=== PATIENT | female | born 1960 | race Caucasian/White ===

== ENCOUNTER 2016-07-26 08:30 | Emergency (ER) | payer OTHER ==
[~2016-07-26] VITALS: Ht 162.6 cm; Wt 77.3 kg
[2016-07-26 08:35] VITALS: BP 140/86; PULSE 91; RESP 18; O2SAT 98
--- NOTE | 2016-07-26 09:08 | ED.REPORT ---
HPI-Dizziness / Weakness Date of Service July 26, 2016 ED Provider: Jesus Bright DO 56 year old female presents to the ER complaining of lightheadedness onset suddenly after eating some toast and hummus for breakfast. Patient became unsteady on her feet, and nauseated due to the severity of symptoms and promptly sat down. Associated symptoms include palpitations, diaphoresis, and a single episode of vomiting. Currently she primarily complains of persistent lightheadedness. She denies any chest pain, arm pain, numbness/weakness, and any other neurological symptoms. Nursing Notes Stated Complaint: NAUSEA/DIZZY Chief Complaint: General Complaint Nursing Notes Reviewed: Yes Allergies: Coded Allergies: No Known Allergies (Unverified , 07/26/16) General Time Seen by MD: 09:07 Chief Complaint Lightheaded Hx Obtained From: Patient Arrived By: Walk-in Onset Occurred: Just prior to arrival Symptom Duration: Since onset Location: : No pain Associated with: Reports: Nausea, Vomiting Pertinent Negative: Pt denies other symptoms Similar Sx Previous: No Past Medical History Past Medical History Reports: Asthma Past Surgical History Sinus surgery Knee surgery Reports: Cholecystectomy Smoking History Never Smoker Social History Alcohol Use: Denies alcohol use Ambulatory Status Independent Review of Systems GI: Reports: Nausea, Vomiting, Denies: Diarrhea Skin: Reports Diaphoresis Neurologic: Reports: Dizziness, Lightheaded, Denies: Focal weakness (/), Numbness, Slurred speech, Syncope, Weakness Complete sys rev & neg: except as marked. Physical Exam Initial Vital Signs Vital Signs (First) Date Time Temp Pulse Resp B/P Pulse Ox O2 Delivery O2 Flow Rate FiO2 07/26/16 08:35 35.8 91 18 140/86 98 07/26/16 10:25 Room Air Initial VS: Reviewed Neck: Supple, Non-tender, Full range of motion Abdomen / GI: Soft, Non-tender, No guarding, No rebound, No distention Extremities: Vascular intact, Neuro intact, No swelling, No tenderness Skin: Warm, Dry, No cyanosis Psychiatric: Mood/affect normal, Behavior normal, Normal thought content General/Constitutional: Awake, Alert, Well developed, Well nourished Head / Eyes: Normocephalic, PERRL, No nystagmus, Conjunctiva NL Respiratory / Chest: Breath sounds NL, Breath sounds = bilat, No respiratory distress, No rales, No rhonchi, No wheezing Cardiovascular: Heart rate NL, Regular rhythm, Heart sounds NL, No murmurs, Cap refill not delayed, Peripheral circulation NL Neurologic: Oriented X3, Speech NL, No motor deficits, No sensory deficits, CN II - XII intact Describes lightheadedness, NOT vertigo or ataxia. Interpretation & Diagnostics Lab Results Interpretation Result Diagram: 07/26/16 1046 07/26/16 1046 Test 07/26/16 10:46 07/26/16 11:20 White Blood Count 9.9th/mm3 (3.8-10.1) Red Blood Count 4.62mil/mm3 (3.90-5.20) Hemoglobin 12.8g/dL (12.0-15.6) Hematocrit 39.2% (35.0-46.0) Mean Corpuscular Volume 84.8fL (81-100) Mean Corpuscular Hemoglobin 27.7pg (27.0-35.0) Mean Corpuscular Hemoglobin Concent 32.7% (32.0-37.0) Red Cell Distribution Width 16.0% (12.3-15.4) Platelet Count 235bil/L (150-400) Neutrophils (%) (Auto) 76.5% (40-74) Lymphocytes (%) (Auto) 9.5% (14-46) Monocytes (%) (Auto) 8.1% (4-12) Eosinophils (%) (Auto) 5.0% (0-5) Basophils (%) (Auto) 0.6% (0-3) D-Dimer < 0.50mg/L FEU (<0.50) Sodium Level 143mEq/L (134-144) Potassium Level 3.8mEq/L (3.5-5.2) Chloride Level 107mEq/L (97-108) Carbon Dioxide Level 21mmol/L (18-29) Blood Urea Nitrogen 21mg/dL (6-24) Creatinine 0.71mg/dL (0.57-1.00) Estimat Glomerular Filtration Rate 121mL/min (>59) Glucose Level 100mg/dL (60-99) Calcium Level 9.3mg/dL (8.5-10.1) Magnesium Level 2.0mg/dL (1.6-2.6) Total Bilirubin 0.3mg/dL (0.0-1.2) Aspartate Amino Transf (AST/SGOT) 53U/L (0-50) Alanine Aminotransferase (ALT/SGPT) 58U/L (0-32) Alkaline Phosphatase 87U/L (25-150) Total Creatine Kinase 111U/L (21-215) Creatine Kinase MB 2.1ng/mL (0.0-5.3) Creatine Kinase MB % % (0.0-5.0) Troponin T 0.010ug/L (0.0-0.011) Pro-B-Type Natriuretic Peptide 38.45pg/mL (0-287) Total Protein 7.4g/dL (6.4-8.4) Albumin 3.9g/dL (3.4-5.0) Theophylline Level 16.0ug/mL Rx (10.0-20.0) Hold Urine Received (Received) ECG Interpretation Time: 09:52 Interpreted by: ED physician Normal ECG Interpretation: Normal rate (80), Normal sinus rhythm, No acute ischemic changes, Normal QRS, Normal axis, Normal intervals, No change from prior ECGs, Adequate tracing X-Ray Chest Interpretation Chest Xray Interpretation: IMPRESSION: No acute cardiopulmonary disease process. Dictated by: Bibiana Ignacio MD, PhD on 07/26/2016 at 10:09 Approved by: Bibiana Ignacio MD, PhD on 07/26/2016 at 10:11 View: Portable, 1 view Interpretation / Wet Read by: Interpret - Radiologist Re-Eval/Medical Decision Med Decision/Clinical Course Heart score is 2. Patient presents with a sense of nausea and almost passing out after eating some food this morning. Her symptoms have resolved. Overall it did not sound consistent with a cerebellar stroke or other neurologic process. Her labs are unremarkable for acute coronary syndrome unlikely to be pulmonary embolism. Her liver function tests are mildly abnormal but on both initial eval and redeveloped she has no abdominal tenderness. This is not likely acute cholecystitis. Overall her symptoms have resolved. I feel that she should have close outpatient cardiac follow up including Holter monitor and probable stress test. It is recommended that she begin taking aspirin daily. Return and follow-up precautions are given. Source of Hx: Old records Re-Evaluation/Progress : Time of Eval: 11:59 Re-Evaluation/Progress Note: Patient's symptoms have resolved. Discussed lab and radiology results and plan to discharge. Patient is amenable to the plan. Return precautions given. All other questions addressed. Counseled Regarding: Diagnosis, Lab results, Need for follow-up, When/why to return to ED Patient Discharge & Departure Impression: Primary Impression: Near syncope Disposition: Home Discharge Condition All VS Reviewed: Yes Condition: Stable Additional Instructions: Your labs are reassuring. Follow-up with your regular doctor for outpatient Holter monitor and stress test. Take aspirin daily. Return to the ER if you develop recurrent episodes of passing out, severe chest pain, palpitations lasting more than 15 minutes, severe abdominal pain, or any other concerns. Referrals: Loli Bynum MD (PCP) Anabella Attestation Portions of this note were transcribed by Jus Ryan. I, Dr. Bright, personally performed the history, physical exam and medical decision-making; I reviewed and confirmed the accuracy of the information in the transcribed note. Signed by: Anabella Quiñones, 07/26/2016 and 12:09 Loli Bynum MD, Timothy S DO July 26, 2016 09:08 JUS RYAN July 26, 2016 09:17
[2016-07-26] MEDS ORDERED: 0.9% Sodium Chloride 1,000 ML IV ONE (09:21)
[2016-07-26] MEDS ORDERED: Ondansetron 2 mg/mL 2 mL Inj IVPUSH ONE (09:25)
--- NOTE | 2016-07-26 10:13 | DRSVH ---
PROCEDURE: X-RAY CHEST ONE VIEW, PORTABLE ([id number]) INDICATIONS: near syncope TECHNIQUE: One view of the chest was acquired. COMPARISON: [facility], CR, CHEST 2VW, 07/05/2006, 15:44. FINDINGS: Surgical changes and devices: None. Lungs and pleura: No pleural effusions or pneumothorax. Lungs are clear. Mediastinum: Mediastinal contours appear normal. Heart size is normal. Bones and chest wall: No suspicious bony lesions. Overlying soft tissues appear unremarkable. IMPRESSION: No acute cardiopulmonary disease process. Dictated by: Bibiana Ignacio MD, PhD on 07/26/2016 at 10:09 Approved by: Bibiana Ignacio MD, PhD on 07/26/2016 at 10:11
[2016-07-26 10:25] VITALS: BP 129/75; PULSE 75; RESP 11
[2016-07-26 10:27] VITALS: BP 149/79; PULSE 90; RESP 12; O2SAT 98
[2016-07-26 10:49] LABS: BASOPHILS % (AUTO) 0.6 % (0-3); MONOCYTES % (AUTO) 8.1 % (4-12); Mean Corpuscular Hemoglobin 27.7 pg (27.0-35.0); Mean Corpuscular Volume 84.8 fL (81-100); NEUTROPHILS % (AUTO) 76.5 % (40-74); Platelet Count 235 bil/L (150-400)
[2016-07-26 11:14] VITALS: BP 122/74; PULSE 85; RESP 15; O2SAT 97
[2016-07-26 11:22] LABS: Creatine Kinase 111 U/L (21-215)
[2016-07-26 12:16] VITALS: BP 134/64; PULSE 86; RESP 24; O2SAT 97
== END 2016-07-26 12:18 | disposition home or self-care (01) ==
LOC: SED 08:30
DX: R55 Syncope and collapse (principal)
CPT/HCPCS: 36415; 71010; 80053; 82550; 82553; 83735; 83880; 84484; 85025; 85378; 93005; 96360; 99285; J7030